=== PATIENT | male | born 1925 | race Caucasian/White ===

== ENCOUNTER 2016-09-05 08:32 | Emergency (ER) | payer MEDICARE, BC ==
--- NOTE | ~2016-09-05 | CR72 ---
[facility] A Service of [facility] RADIOLOGY TEXT RESULTS PATIENT: JIMY JAMES LOCATION: [facility] : [birth year] UNIT #: [id number] AGE: [address]: Saranya Gonzalez MD SEX: M ORDER DR: [id number] [facility] [address] [place], [place] [address] [id number] E MR#: [id number] Acc #: [id number] NAME: JIMY JAMES : 1925 SEX: M STUDY DATE/TIME: 09/05/2016 08:36 UNIT: [facility] ROOM: STUDY DESCRIPTION: CR Chest Single View Portable Attending Physician: Saranya Gonzalez M.D. Ordering Physician: Saranya Gonzalez M.D. Primary Care Physician: Lam Cid M.D. MEDICAL IMAGING REPORT This report is preliminary unless electronic signature is present EXAM Chest portable, 09/05/2016 at 08:36 hours HISTORY 89-year-old man with 3 day history of headache and cough. COMPARISON 03/24/2016 FINDINGS Two portable upright films were performed to include all of the lungs. Heart size is normal. There is a tortuous aorta without change in contour. There is a left subclavian dual lead pacer with leads over the right atrium and right ventricle unchanged. The lungs are clear. There is no effusion or pneumothorax. IMPRESSION Normal heart size with stable tortuous aorta and pacer device. The lungs are clear. No effusion seen. Dictated by... Catie Cormier M.D. THIS IS AN ELECTRONICALLY VERIFIED REPORT Catie Cormier M.D. at 09/05/2016 11:43 AM David TD: 09/05/2016 09:25 JOB #: [id number] MEDICAL IMAGING REPORT COPY
--- NOTE | ~2016-09-05 | CT71 ---
[facility] A Service [facility] RADIOLOGY TEXT RESULTS PATIENT: JIMY JAMES LOCATION: [facility] : [birth year] UNIT #: [id number] AGE: [address]: Saranya Gonzalez MD SEX: M ORDER DR: [id number] [address] [address] [id number] E MR#: [id number] Acc #: [id number] NAME: JIMY JAMES : 1925 SEX: M STUDY DATE/TIME: 09/05/2016 9:18 UNIT: [facility] ROOM: STUDY DESCRIPTION: CT Head Wo Contrast Attending Physician: Saranya Gonzalez M.D. Ordering Physician: Saranya Gonzalez M.D. Primary Care Physician: Lam Cid M.D. MEDICAL IMAGING REPORT This report is preliminary unless electronic signature is present EXAM CT of the head without contrast INDICATION Head and neck pain for 3 days. Increasing severity. TECHNIQUE CT of the head without contrast. This CT examination was performed with one or more of the following radiation dose reduction techniques: automatic exposure control, adjustment of mA and/or kV according to patient size, and iterative reconstruction. COMPARISON MR brain dated 11/04/2012. FINDINGS There is no acute intracranial hemorrhage, mass lesion, or acute infarct. Taylor-white matter differentiation is normal. There is generalized global cerebral atrophy and some chronic small vessel changes. Ventricles and basilar cisterns are normal in size and configuration. No extraaxial collections. There are no acute osseous abnormalities. Moderate vascular calcifications are noted in the intracranial internal carotid arteries. IMPRESSION 1. No acute findings. 2. Atrophy and chronic small vessel changes. Dictated by... Ricky Wilkins M.D. [facility] A Service [facility] RADIOLOGY TEXT RESULTS PATIENT: JIMY JAMES LOCATION: [facility] : [birth year] UNIT #: [id number] AGE: [address]: Saranya Gonzalez MD SEX: M ORDER DR: THIS IS AN ELECTRONICALLY VERIFIED REPORT Ricky Wilkins M.D. at 09/06/2016 8:17 AM NINA/derek TD: 09/05/2016 10:11 JOB #: [id number] MEDICAL IMAGING REPORT COPY
--- NOTE | ~2016-09-05 | CT52 ---
[facility] A Service of [facility] RADIOLOGY TEXT RESULTS PATIENT: JIMY JAMES LOCATION: [facility] : [birth year] UNIT #: [id number] AGE: [address]: Saranya Gonzalez MD SEX: M ORDER DR: [id number] [facility] [address] [place], [place] [address] [id number] E MR#: [id number] Acc #: [id number] NAME: JIMY JAMES : 1925 SEX: M STUDY DATE/TIME: 09/05/2016 9:18 UNIT: [facility] ROOM: STUDY DESCRIPTION: CT Cervical Spine Wo Cont Attending Physician: Saranya Gonzalez M.D. Ordering Physician: Saranya Gonzalez M.D. Primary Care Physician: Lam Cid M.D. MEDICAL IMAGING REPORT This report is preliminary unless electronic signature is present EXAM CT cervical spine. HISTORY Head and neck pain x3 days. No injury. Pain moves from neck to head. Worse this a.m. TECHNIQUE CT of the cervical spine was performed. Bone and soft tissue windows are reviewed. Sagittal and coronal reconstructions were performed. This CT exam was performed with one or more of the following radiation dose reduction techniques: automatic exposure control, adjustment of mA and/or kV according to patient size, and iterative reconstruction. FINDINGS Visualized portions of brain show no acute abnormality. Please see today's dedicated CT head for further assessment. The visualized nasopharyngeal, oropharyngeal, pharyngeal mucosal and retropharyngeal spaces are unremarkable. Visualized portions of thyroid unremarkable. Superior mediastinum and visualized lung apices unremarkable. Visualized submandibular and parotid glands unremarkable. Carotid arterial calcifications. Correlate clinically and if warranted consider further evaluation with carotid ultrasound or CT angiography. 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 Cardiac pacing leads from left-sided cardiac pacemaker. Diminished bony mineralization. Alignment in frontal projection normal. In lateral projection, there is an approximately 1-2 mm degenerative anterolisthesis C2 on C3. Vertebral body heights normal. Mild generalized narrowing of intervertebral disc spaces. Facet joint relationships normal. No fracture. No indication of traumatic STS. [facility] A Service of [facility] & [facility] RADIOLOGY TEXT RESULTS PATIENT: [id number] [birth year] UNIT #: [id number] AGE: [address]: CarlosSeptember Mignon HERNANDEZ SEX: M ORDER DR: malalignment. C2-C3: Small posterior central disc bulge. Narrowing anterior thecal space. Possible anterior cord contact without cord compression. Similar appearance on CT angiogram neck in 2014. The neural foramina are patent without evidence of exiting nerve impingement. C3-C4: Mild posterior concentric disc bulge. Narrowing of the anterior thecal space. Anterior cord contact. Mild central spinal canal narrowing. Findings slightly more pronounced than on prior CT angiogram. The neural foramina show mild to moderate narrowing bilaterally, greater on the left than the right, and due to bilateral uncovertebral facet degenerative changes. C4-C5: Posterior central and left paracentral disc bulge/protrusion. Anterior central and left paracentral cord contact. Some mild mass effect on the anterior central and left paracentral cord. Similar appearance on prior study. Mild central spinal canal narrowing. The C4-C5 neural foramina are patent without evidence of exiting nerve impingement. C5-C6: No significant disc bulge or herniation. Neural foramina patent without evidence of exiting nerve impingement. C6-C7: No significant disc bulge or herniation. Spinal canal diameter normal. Neural foramina patent without evidence of exiting nerve impingement. C7-T1, T1-T2, T2-T3, T3-T4: No significant disc bulge or herniation. Spinal canal diameter normal. The neural foramen are patent without evidence of exiting nerve impingement. IMPRESSION 1. No indication of traumatic fracture or malalignment. Mild 1-2 mm degenerative grade 1 anterolisthesis C2 on C3. Similar appearance on CT angiogram neck in August 2014. 2. Multilevel degenerative disc changes. Small posterior central and left paracentral disc bulge C2-C3 with anterior central and left paracentral cord contact. Mild central spinal canal narrowing. Posterior disc bulge C3-C4 with anterior cord contact and mild central spinal canal narrowing. Posterior central and left paracentral disc bulge/protrusion C4-C5 with anterior central and left paracentral cord contact and some mass effect on cord. Findings are generally similar to the CT angiogram from 2015. The disc bulge at the C4-C5 level and C3-C4 level may be slightly more pronounced than previously. If it would assist in management, spinal canal and neural foraminal contents could best be further evaluated with post-myelogram CT. Patient has a cardiac pacemaker and it is not a candidate for MRI. 3. Carotid arterial calcifications. Correlate clinically. If [facility] A Service of [facility] RADIOLOGY TEXT RESULTS PATIENT: [facility]IMY JAMES [id number] [birth year] UNIT #: [id number] AGE: [address]: CarlosSaranya Mignon HERNANDEZ SEX: M ORDER DR: warranted, consider reevaluation with carotid ultrasound or CT angiogram. CT angiogram in 2014 showed 60% luminal narrowing at the origin of the right internal carotid artery. See remainder of incidental findings body of report above. Dictated by... Luis Franco M.D. THIS IS AN ELECTRONICALLY VERIFIED REPORT Luis Franco M.D. at 09/06/2016 7:54 AM DENNY/kylah TD: 09/05/2016 10:56 JOB #: [id number] MEDICAL IMAGING REPORT COPY
[~2016-09-05 08:32] MED LIST: ASPIRIN EC81 M1 PO; ASPIRIN81 M2 PO; ATORVASTATIN CA10 MG PO; ATORVASTATIN CA80 MG PO; CARDIZEM60 M1 PO; COMBIVENT U/D3 M2 INH; COREG3.125 MG PO; FLOMAX0.4 M1 PO; HYDROCHLOROTH12.5 M1 PO; IMDUR-ER30 MG PO; IRON TABLETS1 TAB PO; ISOSORBIDE DINI30 MG PO; K-DUR20 ME1 PO; LASIX20 MG PO; LIPITOR PO; LISINOPRIL-HCTZ1 T15 PO; LISINOPRIL-HCTZ1 T16 PO; OMEPRAZOLE MAGN20 MG PO; OMEPRAZOLE20 M1 PO; OMEPRAZOLE20 M2 PO; OMNICEF300 MG PO; PRILOSEC20 M1 PO; PRINIVIL10 MG PO; PROTONIX PO; TOPROL XL 50 MG50 MG PO; TOPROL XL50 MG PO; TUMS500 M1 PO; VANTIN200 MG PO; ZYCLARA1 EACH TOP; [UNRECOGNIZED DRUG - OTHER] TP
== END 2016-09-05 11:13 | disposition home or self-care (01) ==
LOC: CED 08:32
DX: S16.1XXA Strain of muscle, fascia and tendon at neck level, initial encounter (principal); M50.31 Other cervical disc degeneration, high cervical region; I25.10 Atherosclerotic heart disease of native coronary artery without angina pectoris; I10 Essential (primary) hypertension; J44.9 Chronic obstructive pulmonary disease, unspecified; K21.9 Gastro-esophageal reflux disease without esophagitis; X58.XXXA Exposure to other specified factors, initial encounter; Y92.9 Unspecified place or not applicable
CPT/HCPCS: 70450; 71010; 72125; 94640; 99284